=== PATIENT | male | born 1985 | race American Indian/Alaskan Native ===

== ENCOUNTER 2016-07-23 23:07 | Emergency (ER) | payer OTHER ==
[2016-07-24 00:34] VITALS: BP 129/85
[2016-07-24 00:51] LABS: Basophils % (Auto) 0.5 % (0.0-1.8); Eosinophils % (Auto) 0.2 % (0.0-4.3); Hematocrit 43.9 % (35.5-45.6); Hemoglobin 14.9 gm/dl (11.8-15.2); Mean Corpuscular HGB Conc 34 % (32-34); Mean Corpuscular Hemoglobin 31 pg (28-32); Mean Corpuscular Volume 93 fl (84-94); Platelet Count 204 K/mm3 (140-440); Red Blood Count 4.74 M/mm3 (3.65-5.03)
[2016-07-24 01:18] LABS: Alanine Aminotransferase 11 units/L (7-56); Albumin 4.3 g/dL (3.9-5); Albumin/Globulin Ratio 1.3 %; Alkaline Phosphatase 63 units/L (35-129); Anion Gap 19 mmol/L; BUN/Creatinine Ratio 11.11; Bilirubin,Total 0.9 mg/dL (0.1-1.2); Blood Urea Nitrogen 10 mg/dL (9-20); Calcium 9.2 mg/dL (8.4-10.2); Carbon Dioxide 21 mmol/L (22-30); Chloride 98.9 mmol/L (98-107); Glucose 116 mg/dL (75-100); Lipase 55 units/L (13-60); Potassium 4.2 mmol/L (3.6-5.0); Sodium 135 mmol/L (137-145); Total Protein 7.7 g/dL (6.3-8.2)
[2016-07-24 02:29] LABS: Bilirubin,Urine NEG (Negative); Blood,Urine NEG (Negative); Ketones,Urine NEG (Negative); Leukocyte Esterase,Urine NEG (Negative); Nitrite,Urine NEG (Negative); Protein,Urine <15 mg/dL mg/dL (Negative); Urobilinogen,Urine < 2.0 mg/dL (<2.0)
--- NOTE | 2016-07-26 18:34 | ED Elopement Review ---
ED Pt Elopement review - Results review Lab results: Laboratory Tests 07/24/16 07/24/16 07/24/16 00:39 00:39 Unknown WBC 11.0 RBC 4.74 Hgb 14.9 Hct 43.9 MCV 93 MCH 31 MCHC 34 RDW 14.0 Plt Count 204 Lymph % (Auto) 15.9 [place] % (Auto) 12.8 H Eos % (Auto) 0.2 Baso % (Auto) 0.5 Lymph # 1.7 [place] # 1.4 H Eos # 0.0 Baso # 0.1 Seg Neutrophils % 70.6 H Seg Neutrophils # 7.8 H Sodium 135 L Potassium 4.2 Chloride 98.9 Carbon Dioxide 21 L Anion Gap 19 BUN 10 Creatinine 0.9 Estimated GFR > 60 BUN/Creatinine Ratio 11.11 Glucose 116 H Calcium 9.2 Total Bilirubin 0.9 AST 14 ALT 11 Alkaline Phosphatase 63 Total Protein 7.7 Albumin 4.3 Albumin/Globulin Ratio 1.3 Lipase 55 Urine Color Straw Urine Turbidity Clear Urine pH 7.0 Ur Specific [place] 1.004 Urine Protein <15 mg/dl Urine Glucose (UA) Neg Urine Ketones Neg Urine Blood Neg Urine Nitrite Neg Urine Bilirubin Neg Urine Urobilinogen < 2.0 Ur Leukocyte Esterase Neg Urine WBC (Auto) 0.0 Urine RBC (Auto) 1.0 - Call Back decision Pt Call Back Decision: No action required
== END 2016-07-24 04:30 | disposition left against medical advice (07) ==
LOC: ED 23:07
DX: R50.9 Fever, unspecified (principal); R10.9 Unspecified abdominal pain; Z53.21 Procedure and treatment not carried out due to patient leaving prior to being seen by health care provider
CPT/HCPCS: 36415; 80053; 81001; 83690; 85025